=== PATIENT | female | born 1975 | race Caucasian/White ===

== ENCOUNTER 2016-10-27 11:34 | Day surgery (SDC) | payer OTHER ==
[~2016-10-27] VITALS: Ht 162.6 cm; Wt 107.0 kg
[~2016-10-27 11:34] MED LIST: ATIVAN0.5 MG PO; CATAPRES0.1 MG PO; LASIX20 MG PO; MIDOL COMPLETE1 EACH PO; NORVASC10 MG PO; PRISTIQ50 MG PO; ROCALTROL0.25 MCG PO; SYNTHROID88 MCG PO; TYLENOL REGULA325 MG PO; WELLBUTRIN SR200 MG PO
[2016-10-27 12:21] LABS: HEMATOCRIT 40.5 % (36.0-46.0); MCH 30.1 PG (29.0-34.0); MCHC 33.3 G/DL (30.0-36.0); MCV 90.2 FL (83-99); MEAN PLAT.VOLUME 9.8 uM^3 (9.5-12.4); PLATELET COUNT 319 K/uL (156-360); RBC DIS.WIDTH-CV 15.2 % (11.8-14.6); RBC DIS.WIDTH-SD 49.9 % (39-53); RED BLOOD COUNT 4.49 M/uL (3.80-5.20); WHITE BLOOD COUNT 7.6 K/uL (4.1-10.2)
[2016-10-27 12:40] LABS: ANION GAP 12 MEQ/L (2-14); CHLORIDE 103 MEQ/L (99-109); POTASSIUM 3.1 MEQ/L (3.7-5.4); SAMPLE HEMOLYSIS CHECK 0; SAMPLE ICTERIC CHECK 0; SAMPLE LIPEMIA CHECK 0; SODIUM 140 MEQ/L (136-147)
[2016-10-27 12:46] LABS: GFR ESTIMATE (CALCULATED) 12 mL/min/; GLUCOSE 94 mg/dL (70-99); UREA NITROGEN (BUN) 43 mg/dL (9-23)
[2016-10-27 13:12] VITALS: BP 152/99
[2016-10-27] MEDS ORDERED: NORCO 5/3251 TABLET PO (18:26)
[2016-10-27 20:23] VITALS: BP 188/97
[2016-10-27 21:35] VITALS: BP 159/89
== END 2016-10-27 22:05 | disposition home or self-care (01) ==
LOC: SDC 11:34
PROVIDERS: Surgery
PROC: 0WHG43Z Insertion of Infusion Device into Peritoneal Cavity, Percutaneous Endoscopic Approach (ICD-10-PCS; principal; 2016-10-27)
DX: I12.0 Hypertensive chronic kidney disease with stage 5 chronic kidney disease or end stage renal disease (principal); N18.6 End stage renal disease; E03.9 Hypothyroidism, unspecified; K21.9 Gastro-esophageal reflux disease without esophagitis; Z79.899 Other long term (current) drug therapy
CPT/HCPCS: 80048; 85027; C1750; J0330; J1170; J2250; J2405; J2710; J3010; S0020

== ENCOUNTER 2017-01-10 12:57 | Day surgery (SDC) | payer OTHER ==
[~2017-01-10] VITALS: Ht 162.6 cm; Wt 106.0 kg
[~2017-01-10 12:57] MED LIST changes: +COZAAR100 MG PO; +KLOR-CON M2020 MEQ PO; +NORCO 5/3251 TABLET PO; +PRILOSEC OTC20 MG PO; +RENA-VITE RX T1 EACH PO
[2017-01-10 13:59] LABS: ANION GAP 10 MEQ/L (2-14); CHLORIDE 104 MEQ/L (99-109); POTASSIUM 3.9 MEQ/L (3.7-5.4); SAMPLE HEMOLYSIS CHECK 0; SAMPLE ICTERIC CHECK 0; SAMPLE LIPEMIA CHECK 0; SODIUM 141 MEQ/L (136-147)
[2017-01-10 14:03] VITALS: BP 112/67
[2017-01-10 14:04] LABS: GFR ESTIMATE (CALCULATED) 13 mL/min/; GLUCOSE 91 mg/dL (70-99); UREA NITROGEN (BUN) 43 mg/dL (9-23)
[2017-01-10 15:34] LABS: HEMATOCRIT 41.4 % (36.0-46.0); MCH 29.3 PG (29.0-34.0); MCHC 31.9 G/DL (30.0-36.0); PLATELET COUNT 355 K/uL (156-360); RBC DIS.WIDTH-CV 14.5 % (11.8-14.6); RBC DIS.WIDTH-SD 48.9 % (39-53); WHITE BLOOD COUNT 6.3 K/uL (4.1-10.2)
[2017-01-10] MEDS ORDERED: NORCO 5/3251 TABLET PO (18:56)
[2017-01-10 19:43] VITALS: BP 136/84
[2017-01-10 20:47] VITALS: BP 134/73
== END 2017-01-10 20:50 | disposition home or self-care (01) ==
LOC: SDC 12:57
PROVIDERS: Surgery
PROC: 0WWG43Z Revision of Infusion Device in Peritoneal Cavity, Percutaneous Endoscopic Approach (ICD-10-PCS; principal; 2017-01-10)
DX: T85.621A Displacement of intraperitoneal dialysis catheter, initial encounter (principal); T85.848A Pain due to other internal prosthetic devices, implants and grafts, initial encounter; Y83.1 Surgical operation with implant of artificial internal device as the cause of abnormal reaction of the patient, or of later complication, without mention of misadventure at the time of the procedure; I12.0 Hypertensive chronic kidney disease with stage 5 chronic kidney disease or end stage renal disease; N04.9 Nephrotic syndrome with unspecified morphologic changes; N18.6 End stage renal disease; Z99.2 Dependence on renal dialysis; E03.9 Hypothyroidism, unspecified; I25.10 Atherosclerotic heart disease of native coronary artery without angina pectoris; Z82.49 Family history of ischemic heart disease and other diseases of the circulatory system; Z83.3 Family history of diabetes mellitus
CPT/HCPCS: 80048; 85027; 93005; J0131; J0690; J1170; J2250; S0020

== ENCOUNTER 2017-05-03 19:38 | Observation (INO) | payer OTHER ==
[~2017-05-03] VITALS: Ht 162.6 cm; Wt 110.1 kg
[2017-05-03] MEDS ORDERED: FUROSEMIDE80 MG PO (19:59)
[2017-05-03] MEDS ORDERED: LORAZEPAM0.5 MG PO (20:00)
[2017-05-03] MEDS ORDERED: LOPRESSOR25 MG PO (20:00)
[2017-05-03] MEDS ORDERED: PRISTIQ50 MG PO (20:01)
[2017-05-03] MEDS ORDERED: RENA-VITE RX T1 EACH PO (20:02)
[2017-05-03] MEDS ORDERED: RENVELA800 MG PO (20:03)
[2017-05-03] MEDS ORDERED: SYNTHROID88 MCG PO (20:03)
[2017-05-03 21:36] LABS: EOSINOPHIL (%) 5.4 % (0-5); EOSINOPHIL COUNT 0.6 K/uL (0-0.3); HEMATOCRIT 47.5 % (36.0-46.0); IMMATURE GRANULOCYTE (%) 0.6 % (0.0-0.7); IMMATURE GRANULOCYTE COUNT 0.1 K/uL; LYMPHOCYTE COUNT 1.6 K/uL (1.0-2.8); MCH 30.4 PG (29.0-34.0); MCHC 34.1 G/DL (30.0-36.0); MCV 89.1 FL (83-99); MEAN PLAT.VOLUME 8.9 uM^3 (9.5-12.4); MONOCYTE (%) 4.6 % (3-12); MONOCYTE COUNT 0.5 K/uL (0-0.8); NEUTROPHIL (%) 75.9 % (45-76); PLATELET COUNT 288 K/uL (156-360); RBC DIS.WIDTH-CV 13.8 % (11.8-14.6); RBC DIS.WIDTH-SD 43.8 % (39-53); RED BLOOD COUNT 5.33 M/uL (3.80-5.20); WHITE BLOOD COUNT 11.8 K/uL (4.1-10.2)
[2017-05-03 21:47] LABS: CHLORIDE 95 mEq/L (99-109); SODIUM 135 mEq/L (136-147)
[2017-05-03 21:49] LABS: GLUCOSE 93 mg/dL (70-99)
[2017-05-03 21:50] LABS: ANION GAP 20 MEQ/L (2-14)
[2017-05-03 21:51] LABS: TOTAL BILIRUBIN 0.5 mg/dL (0.0-1.0)
[2017-05-03 21:52] LABS: ALKALINE PHOSPHATASE 88 IU/L (3-129)
[2017-05-03 21:53] LABS: GFR ESTIMATE (CALCULATED) 3 mL/min/
[2017-05-03 21:54] LABS: UREA NITROGEN (BUN) 83 mg/dL (9-23)
[2017-05-03 21:56] LABS: LIPASE 74 U/L (1.0-51.0)
[2017-05-03 22:02] LABS: QUANTITATIVE HCG < 4.0 MIU/ML
[2017-05-03 22:22] LABS: TYPE OF FLUID THORACENTESIS
[2017-05-03 22:47] LABS: BODY FLUID RBC'S 2 /MM^3 (0-100); RED CELL AREA COUNTED 18; RED CELL DILUTION 1; WHITE CELL RAW COUNT 4
[2017-05-03 22:48] LABS: BODY FLUID WBC'S 2 /MM^3 (0-500); WBC AREA COUNTED 18; WBC DILUTION 1
[2017-05-03 22:56] LABS: BODY FLUID EOSINOPHILS 17 % (0-25); MONO RAW COUNT 80; MONONUCLEAR WBC'S 80 %; POLY RAW COUNT 3; POLYNUCLEAR WBC'S 3 % (0-25)
[2017-05-03] MEDS ORDERED: SYNTHROID100 MCG PO (23:23)
[2017-05-03] MEDS ORDERED: LOSARTAN POTAS100 MG PO (23:24)
[2017-05-03] MEDS ORDERED: PEPCID20 MG PO (23:24)
[2017-05-03] MEDS ORDERED: GENTAMICIN SULF30 GM TP (23:25)
[2017-05-04 05:07] VITALS: BP 122/64
[2017-05-04 07:52] VITALS: BP 91/50
[2017-05-04 08:23] LABS: HEMATOCRIT 50.3 % (36.0-46.0); MCH 30.3 PG (29.0-34.0); MCHC 32.8 G/DL (30.0-36.0); MCV 92.5 FL (83-99); MEAN PLAT.VOLUME 8.9 uM^3 (9.5-12.4); PLATELET COUNT 309 K/uL (156-360); RBC DIS.WIDTH-CV 14.4 % (11.8-14.6); RBC DIS.WIDTH-SD 47.4 % (39-53); RED BLOOD COUNT 5.44 M/uL (3.80-5.20); WHITE BLOOD COUNT 12.3 K/uL (4.1-10.2)
[2017-05-04 08:47] LABS: ANION GAP 17 MEQ/L (2-14); CHLORIDE 96 MEQ/L (99-109); POTASSIUM 2.9 MEQ/L (3.7-5.4); SAMPLE HEMOLYSIS CHECK 0; SAMPLE ICTERIC CHECK 0; SAMPLE LIPEMIA CHECK 0; SODIUM 138 MEQ/L (136-147)
[2017-05-04 08:53] LABS: GFR ESTIMATE (CALCULATED) 3 mL/min/; GLUCOSE 75 mg/dL (70-99); LIPASE 121 U/L (1.0-51.0); UREA NITROGEN (BUN) 80 mg/dL (9-23)
[2017-05-04 14:30] VITALS: BP 82/52
[2017-05-04 15:45] LABS: MAGNESIUM 2.2 mg/dl (1.3-2.7)
[2017-05-04 19:58] VITALS: BP 92/55
[2017-05-04 23:45] VITALS: BP 100/54
[2017-05-05 03:50] VITALS: BP 110/64
[2017-05-05 04:22] LABS: BASOPHIL COUNT 0.1 K/uL (0-0.1); EOSINOPHIL (%) 17.9 % (0-5); EOSINOPHIL COUNT 1.6 K/uL (0-0.3); HEMATOCRIT 47.4 % (36.0-46.0); IMMATURE GRANULOCYTE (%) 0.5 % (0.0-0.7); INSTRUMENT ABS NEUTROPHIL CT 3.4 K/uL; LYMPHOCYTE COUNT 3.1 K/uL (1.0-2.8); MCH 30.5 PG (29.0-34.0); MCHC 33.1 G/DL (30.0-36.0); MEAN PLAT.VOLUME 8.8 uM^3 (9.5-12.4); MONOCYTE (%) 6.8 % (3-12); MONOCYTE COUNT 0.6 K/uL (0-0.8); NEUTROPHIL (%) 38.4 % (45-76); NEUTROPHIL COUNT 3.4 K/uL (1.8-6.4); PLATELET COUNT 266 K/uL (156-360); RBC DIS.WIDTH-CV 14.4 % (11.8-14.6); RBC DIS.WIDTH-SD 47.2 % (39-53); RED BLOOD COUNT 5.15 M/uL (3.80-5.20); WHITE BLOOD COUNT 8.8 K/uL (4.1-10.2)
[2017-05-05 04:37] LABS: CHLORIDE 104 mEq/L (99-109); SODIUM 137 mEq/L (136-147)
[2017-05-05 04:39] LABS: GLUCOSE 83 mg/dL (70-99)
[2017-05-05 04:40] LABS: POTASSIUM 4.3 mEq/L (3.7-5.4)
[2017-05-05 04:41] LABS: ANION GAP 17 MEQ/L (2-14)
[2017-05-05 04:43] LABS: GFR ESTIMATE (CALCULATED) 3 mL/min/
[2017-05-05 04:44] LABS: UREA NITROGEN (BUN) 77 mg/dL (9-23)
[2017-05-05 06:57] VITALS: BP 93/55
[2017-05-05 11:21] VITALS: BP 118/71
[2017-05-05 15:15] VITALS: BP 108/57
[2017-05-05 20:20] VITALS: BP 113/68
[2017-05-06 00:14] VITALS: BP 96/57
[2017-05-06 04:36] VITALS: BP 105/57
[2017-05-06 05:35] LABS: BASOPHIL COUNT 0.1 K/uL (0-0.1); EOSINOPHIL (%) 17.1 % (0-5); EOSINOPHIL COUNT 1.4 K/uL (0-0.3); HEMATOCRIT 43.4 % (36.0-46.0); IMMATURE GRANULOCYTE (%) 0.4 % (0.0-0.7); INSTRUMENT ABS NEUTROPHIL CT 3.5 K/uL; LYMPHOCYTE COUNT 2.6 K/uL (1.0-2.8); MCH 30.7 PG (29.0-34.0); MCHC 32.9 G/DL (30.0-36.0); MCV 93.1 FL (83-99); MEAN PLAT.VOLUME 8.8 uM^3 (9.5-12.4); MONOCYTE COUNT 0.8 K/uL (0-0.8); NEUTROPHIL (%) 41.5 % (45-76); NEUTROPHIL COUNT 3.5 K/uL (1.8-6.4); PLATELET COUNT 291 K/uL (156-360); RBC DIS.WIDTH-CV 14.5 % (11.8-14.6); RBC DIS.WIDTH-SD 48.3 % (39-53); RED BLOOD COUNT 4.66 M/uL (3.80-5.20); WHITE BLOOD COUNT 8.3 K/uL (4.1-10.2)
[2017-05-06 06:07] LABS: ANION GAP 16 MEQ/L (2-14); CHLORIDE 100 MEQ/L (99-109); GFR ESTIMATE (CALCULATED) 4 mL/min/; GLUCOSE 87 mg/dL (70-99); POTASSIUM 3.6 MEQ/L (3.7-5.4); SAMPLE HEMOLYSIS CHECK 0; SAMPLE ICTERIC CHECK 0; SAMPLE LIPEMIA CHECK 0; SODIUM 139 MEQ/L (136-147); UREA NITROGEN (BUN) 69 mg/dL (9-23)
[2017-05-06 07:03] VITALS: BP 101/67
[2017-05-06] MEDS ORDERED: URSODIOL300 MG PO (09:42)
== END 2017-05-06 10:58 | disposition home or self-care (01) ==
LOC: EME → EDBD 19:38 → EDOF 05-04 02:46 → 4EAST 05-04 02:46 → ENRESERV 05-04 02:47 → 4EAST 05-04 04:53
PROVIDERS: Emergency Medicine; Hospitalist; Internal Medicine Nephrology; Nurse Practitioner Adult Health
DX: K83.8 Other specified diseases of biliary tract (principal); R10.13 Epigastric pain; E87.6 Hypokalemia; I95.9 Hypotension, unspecified; I45.6 Pre-excitation syndrome; Z98.890 Other specified postprocedural states; Q61.3 Polycystic kidney, unspecified; I12.0 Hypertensive chronic kidney disease with stage 5 chronic kidney disease or end stage renal disease; N18.6 End stage renal disease; Z99.2 Dependence on renal dialysis; K21.9 Gastro-esophageal reflux disease without esophagitis; Q22.5 Ebstein's anomaly; R94.31 Abnormal electrocardiogram [ECG] [EKG]; F41.9 Anxiety disorder, unspecified; R18.8 Other ascites
CPT/HCPCS: 76705; 78227; 80048; 80053; 81003; 82150 91; 83605; 83690; 83735; 84702; 85025; 85027; 87070; 87205; 89051; 93005; 93306; 99281; 99285; A9537; G0378; J1644; J2405; J2765; J2805; J7040; S0028

== ENCOUNTER 2017-05-12 11:21 | Emergency (ER) | payer OTHER ==
[~2017-05-12] VITALS: Ht 162.6 cm; Wt 103.2 kg
[~2017-05-12 11:21] MED LIST changes: +FUROSEMIDE80 MG PO; +GENTAMICIN SULF30 GM TP; +LOPRESSOR25 MG PO; +LORAZEPAM0.5 MG PO; +LOSARTAN POTAS100 MG PO; +PEPCID20 MG PO; +RENVELA800 MG PO; +SYNTHROID100 MCG PO; +URSODIOL300 MG PO
[2017-05-12 12:51] LABS: HEMATOCRIT 51.8 % (36.0-46.0); MCH 30.8 PG (29.0-34.0); MCHC 33.4 G/DL (30.0-36.0); MCV 92.2 FL (83-99); PLATELET COUNT 351 K/uL (156-360); RBC DIS.WIDTH-CV 14.4 % (11.8-14.6); RBC DIS.WIDTH-SD 48.5 % (39-53); WHITE BLOOD COUNT 9.3 K/uL (4.1-10.2)
[2017-05-12 12:52] LABS: RED BLOOD COUNT 5.62 M/uL (3.80-5.20)
[2017-05-12 13:00] LABS: CHLORIDE 98 mEq/L (99-109); POTASSIUM 3.6 mEq/L (3.7-5.4); SODIUM 139 mEq/L (136-147)
[2017-05-12 13:03] LABS: GLUCOSE 97 mg/dL (70-99)
[2017-05-12 13:04] LABS: ANION GAP 15 MEQ/L (2-14)
[2017-05-12 13:05] LABS: TOTAL BILIRUBIN 0.5 mg/dL (0.0-1.0)
[2017-05-12 13:06] LABS: ALKALINE PHOSPHATASE 83 IU/L (3-129); GFR ESTIMATE (CALCULATED) 4 mL/min/
[2017-05-12 13:07] LABS: UREA NITROGEN (BUN) 64 mg/dL (9-23)
[2017-05-12 13:16] LABS: QUANTITATIVE HCG < 4.0 MIU/ML
[2017-05-12 13:28] LABS: LIPASE 136 U/L (1.0-51.0)
[2017-05-12] MEDS ORDERED: LORTAB 5-325 M1 EACH PO (14:31)
[2017-05-12 14:52] VITALS: BP 140/88
== END 2017-05-12 14:53 | disposition home or self-care (01) ==
LOC: EME 11:21
DX: R10.13 Epigastric pain (principal); R10.33 Periumbilical pain; R11.2 Nausea with vomiting, unspecified; I12.0 Hypertensive chronic kidney disease with stage 5 chronic kidney disease or end stage renal disease; N18.6 End stage renal disease; Z99.2 Dependence on renal dialysis; Q61.3 Polycystic kidney, unspecified; I45.6 Pre-excitation syndrome; Z87.442 Personal history of urinary calculi
CPT/HCPCS: 74176; 80053; 81003; 83690; 84702; 85027; 99281; 99284; J3010; J7030

== ENCOUNTER 2017-08-24 15:55 | Inpatient (IN) | payer OTHER ==
[~2017-08-24] VITALS: Ht 162.6 cm; Wt 104.1 kg
[~2017-08-24 15:55] MED LIST changes: +LORTAB 5-325 M1 EACH PO
[2017-08-24 17:53] LABS: HEMATOCRIT 45.5 % (36.0-46.0); MCH 33.2 PG (29.0-34.0); MCHC 33.4 G/DL (30.0-36.0); MCV 99.3 FL (83-99); MEAN PLAT.VOLUME 9.1 uM^3 (9.5-12.4); PLATELET COUNT 290 K/uL (156-360); RBC DIS.WIDTH-CV 16.5 % (11.8-14.6); RBC DIS.WIDTH-SD 57.4 % (39-53); RED BLOOD COUNT 4.58 M/uL (3.80-5.20); WHITE BLOOD COUNT 9.9 K/uL (4.1-10.2)
[2017-08-24 18:04] LABS: CHLORIDE 92 mEq/L (99-109); POTASSIUM 5.8 mEq/L (3.7-5.4); SODIUM 132 mEq/L (136-147)
[2017-08-24 18:05] LABS: GLUCOSE 92 mg/dL (70-99)
[2017-08-24 18:07] LABS: ANION GAP 19 MEQ/L (2-14)
[2017-08-24 18:09] LABS: GFR ESTIMATE (CALCULATED) 3 mL/min/
[2017-08-24 18:20] LABS: TROP-I INTERPRETATION NEGATIVE; TROPONIN-I < 0.01 ng/mL (0.0-0.30)
[2017-08-24 18:21] LABS: UREA NITROGEN (BUN) 120 mg/dL (9-23)
[2017-08-24 19:16] LABS: CREATININE 16.3 mg/dL (0.6-1.3); POTASSIUM 5.7 mEq/L (3.7-5.4)
[2017-08-24] MEDS ORDERED: SYNTHROID112 MCG PO (19:21)
[2017-08-24] MEDS ORDERED: RENVELA800 MG PO (19:23)
[2017-08-24] MEDS ORDERED: POTASSIUM CHLO20 ME1 PO (19:26)
[2017-08-24] MEDS ORDERED: ESOMEPRAZOLE MA40 MG PO (19:26)
[2017-08-24] MEDS ORDERED: VITAMIN D31000 UNI2 PO (19:27)
[2017-08-24] MEDS ORDERED: TRAZODONE HCL50 MG PO (19:27)
[2017-08-24] MEDS ORDERED: BENADRYL25 MG PO (19:28)
[2017-08-24 21:11] LABS: QUANTITATIVE HCG < 4.0 MIU/ML
[2017-08-24 21:27] VITALS: BP 96/61
[2017-08-24 23:20] VITALS: BP 96/61
[2017-08-25] VITALS (7 sets, daily range): BP systolic 92–123; BP diastolic 57–82
[2017-08-25 01:12] LABS: POTASSIUM 5.3 mEq/L (3.7-5.4)
[2017-08-25 01:26] LABS: TROP-I INTERPRETATION NEGATIVE; TROPONIN-I < 0.01 ng/mL (0.0-0.30)
[2017-08-25 05:51] LABS: BASOPHIL COUNT 0.1 K/uL (0-0.1); EOSINOPHIL (%) 6.2 % (0-5); EOSINOPHIL COUNT 0.6 K/uL (0-0.3); HEMATOCRIT 39.8 % (36.0-46.0); IMMATURE GRANULOCYTE (%) 1.5 % (0.0-0.7); IMMATURE GRANULOCYTE COUNT 0.2 K/uL; INSTRUMENT ABS NEUTROPHIL CT 4.9 K/uL; LYMPHOCYTE COUNT 3.2 K/uL (1.0-2.8); MCH 32.5 PG (29.0-34.0); MCHC 32.4 G/DL (30.0-36.0); MCV 100.3 FL (83-99); MEAN PLAT.VOLUME 9.1 uM^3 (9.5-12.4); MONOCYTE (%) 10.6 % (3-12); MONOCYTE COUNT 1.1 K/uL (0-0.8); NEUTROPHIL (%) 48.5 % (45-76); NEUTROPHIL COUNT 4.9 K/uL (1.8-6.4); PLATELET COUNT 260 K/uL (156-360); RBC DIS.WIDTH-CV 16.3 % (11.8-14.6); RBC DIS.WIDTH-SD 59.5 % (39-53); RED BLOOD COUNT 3.97 M/uL (3.80-5.20)
[2017-08-25 06:04] LABS: TROP-I INTERPRETATION NEGATIVE; TROPONIN-I 0.01 ng/mL (0.0-0.30)
[2017-08-25 06:28] LABS: ALKALINE PHOSPHATASE 67 IU/L (3-129); CHLORIDE 97 MEQ/L (99-109); GFR ESTIMATE (CALCULATED) 3 mL/min/; GLUCOSE 110 mg/dL (70-99); POTASSIUM 4.9 MEQ/L (3.7-5.4); SAMPLE HEMOLYSIS CHECK 0; SAMPLE ICTERIC CHECK 0; SODIUM 136 MEQ/L (136-147); TOTAL BILIRUBIN 0.3 MG/DL (0.0-1.0)
[2017-08-25 06:29] LABS: ANION GAP 18 MEQ/L (2-14); SAMPLE LIPEMIA CHECK 0
[2017-08-25 06:38] LABS: UREA NITROGEN (BUN) 123 mg/dL (9-23)
[2017-08-26 03:46] VITALS: BP 104/64
[2017-08-26 05:50] LABS: BASOPHIL COUNT 0.1 K/uL (0-0.1); EOSINOPHIL (%) 7.5 % (0-5); EOSINOPHIL COUNT 0.6 K/uL (0-0.3); HEMATOCRIT 37.2 % (36.0-46.0); IMMATURE GRANULOCYTE (%) 1.6 % (0.0-0.7); IMMATURE GRANULOCYTE COUNT 0.1 K/uL; INSTRUMENT ABS NEUTROPHIL CT 3.8 K/uL; LYMPHOCYTE COUNT 2.1 K/uL (1.0-2.8); MCH 32.8 PG (29.0-34.0); MCHC 32.8 G/DL (30.0-36.0); MEAN PLAT.VOLUME 9.1 uM^3 (9.5-12.4); MONOCYTE (%) 10.6 % (3-12); MONOCYTE COUNT 0.8 K/uL (0-0.8); NEUTROPHIL (%) 51.5 % (45-76); NEUTROPHIL COUNT 3.8 K/uL (1.8-6.4); PLATELET COUNT 260 K/uL (156-360); RBC DIS.WIDTH-CV 16.1 % (11.8-14.6); RED BLOOD COUNT 3.72 M/uL (3.80-5.20); WHITE BLOOD COUNT 7.4 K/uL (4.1-10.2)
[2017-08-26 06:18] LABS: ANION GAP 15 MEQ/L (2-14); CHLORIDE 100 MEQ/L (99-109); GFR ESTIMATE (CALCULATED) 3 mL/min/; GLUCOSE 98 mg/dL (70-99); MAGNESIUM 1.9 mg/dl (1.3-2.7); POTASSIUM 4.7 MEQ/L (3.7-5.4); SAMPLE HEMOLYSIS CHECK 0; SAMPLE ICTERIC CHECK 0; SAMPLE LIPEMIA CHECK 0; SODIUM 137 MEQ/L (136-147)
[2017-08-26 06:19] LABS: UREA NITROGEN (BUN) 118 mg/dL (9-23)
[2017-08-26 06:57] VITALS: BP 122/82
[2017-08-26 13:15] VITALS: BP 113/76
[2017-08-26] MEDS ORDERED: PREDNISONE5 MG PO (13:38)
== END 2017-08-26 14:15 | disposition home or self-care (01) | DRG 312 ==
LOC: EME 15:55 → EDOF 20:12 → 5EAST 20:12 → ENRESERV 20:13 → 5EAST 21:27
PROVIDERS: Emergency Medicine; Hospitalist; Internal Medicine Nephrology
PROC: 3E1M39Z Irrigation of Peritoneal Cavity using Dialysate, Percutaneous Approach (ICD-10-PCS; principal; 2017-08-25)
DX: I95.1 Orthostatic hypotension (principal); I12.0 Hypertensive chronic kidney disease with stage 5 chronic kidney disease or end stage renal disease; Z99.2 Dependence on renal dialysis; E86.0 Dehydration; N18.6 End stage renal disease; Q61.3 Polycystic kidney, unspecified; E03.9 Hypothyroidism, unspecified; I45.6 Pre-excitation syndrome; E27.40 Unspecified adrenocortical insufficiency; K21.9 Gastro-esophageal reflux disease without esophagitis; F32.9 Major depressive disorder, single episode, unspecified
CPT/HCPCS: 70551; 71020; 78582; 80047; 80048; 80076; 81003; 82533 91; 83605; 83735; 84100; 84132 91; 84443; 84484; 84702; 85025; 85027; 87040; 87086; 89051; 93005; 93306; 99281; 99285; A9540; A9567; J1644; J7030

== ENCOUNTER 2017-09-24 19:12 | Emergency (ER) | payer OTHER ==
[~2017-09-24] VITALS: Ht 167.6 cm; Wt 100.0 kg
[~2017-09-24 19:12] MED LIST changes: +BENADRYL25 MG PO; +ESOMEPRAZOLE MA40 MG PO; +POTASSIUM CHLO20 ME1 PO; +PREDNISONE5 MG PO; +SYNTHROID112 MCG PO; +TRAZODONE HCL50 MG PO; +VITAMIN D31000 UNI2 PO
[2017-09-24 19:33] LABS: CREATININE 15.6 mg/dL (0.6-1.3); POTASSIUM 5.4 mEq/L (3.7-5.4)
[2017-09-24 19:41] LABS: HEMATOCRIT 44.2 % (36.0-46.0); MCH 33.6 PG (29.0-34.0); MCV 101.6 FL (83-99); MEAN PLAT.VOLUME 8.7 uM^3 (9.5-12.4); PLATELET COUNT 246 K/uL (156-360); RBC DIS.WIDTH-CV 14.4 % (11.8-14.6); RBC DIS.WIDTH-SD 54.5 % (39-53); RED BLOOD COUNT 4.35 M/uL (3.80-5.20); WHITE BLOOD COUNT 7.8 K/uL (4.1-10.2)
[2017-09-24 19:55] LABS: CHLORIDE 96 mEq/L (99-109); POTASSIUM 5.6 mEq/L (3.7-5.4); SODIUM 137 mEq/L (136-147)
[2017-09-24 19:57] LABS: GLUCOSE 95 mg/dL (70-99)
[2017-09-24 19:59] LABS: ANION GAP 19 MEQ/L (2-14)
[2017-09-24 20:01] LABS: GFR ESTIMATE (CALCULATED) 3 mL/min/; PROTHROMBIN TIME 11.2 SEC (10.2-12.9)
[2017-09-24 20:02] LABS: UREA NITROGEN (BUN) 91 mg/dL (9-23)
[2017-09-24 20:04] LABS: PTT 29.4 SEC (25-37)
[2017-09-24 20:09] LABS: QUANTITATIVE HCG < 4.0 MIU/ML
[2017-09-24 22:01] VITALS: BP 120/74
== END 2017-09-24 22:06 | disposition short-term general hospital (02) ==
LOC: EME 19:12 → EDBD 19:12 → EME 22:06
PROVIDERS: Emergency Medicine
DX: I63.9 Cerebral infarction, unspecified (principal); R47.01 Aphasia; R29.810 Facial weakness; G81.91 Hemiplegia, unspecified affecting right dominant side; Q61.3 Polycystic kidney, unspecified; Z99.2 Dependence on renal dialysis; Z72.0 Tobacco use
CPT/HCPCS: 70450; 71010; 80047; 80048; 83605; 84702; 85027; 85610; 85730; 86850; 86900; 86901; 93005; 99281; 99285; J2997; J7050

== ENCOUNTER 2017-10-04 15:05 | Inpatient (IN) | payer OTHER ==
[~2017-10-04] VITALS: Ht 162.6 cm; Wt 104.9 kg
[~2017-10-04 15:05] MED LIST changes: -SYNTHROID112 MCG PO; +SYNTHROID125 MCG PO
[2017-10-04 15:45] LABS: BASOPHIL (%) 0.7 % (0-1); BASOPHIL COUNT 0.1 K/uL (0-0.1); EOSINOPHIL (%) 5.4 % (0-5); EOSINOPHIL COUNT 0.5 K/uL (0-0.3); HEMATOCRIT 40.8 % (36.0-46.0); HEMOGLOBIN 13.4 G/DL (11.9-15.5); IMMATURE GRANULOCYTE (%) 1.7 % (0.0-0.7); LYMPHOCYTE (%) 17.1 % (15-42); LYMPHOCYTE COUNT 1.6 K/uL (1.0-2.8); MCH 33.3 PG (29.0-34.0); MCHC 32.8 G/DL (30.0-36.0); MCV 101.5 FL (83-99); MONOCYTE (%) 12.4 % (3-12); MONOCYTE COUNT 1.1 K/uL (0-0.8); NEUTROPHIL (%) 62.7 % (45-76); NEUTROPHIL COUNT 5.7 K/uL (1.8-6.4); RBC DIS.WIDTH-CV 14.1 % (11.8-14.6); RBC DIS.WIDTH-SD 52.7 % (39-53); RED BLOOD COUNT 4.02 M/uL (3.80-5.20); WHITE BLOOD COUNT 9.1 K/uL (4.1-10.2)
[2017-10-04 15:47] LABS: PLATELET COUNT 379 K/uL (156-360)
[2017-10-04 15:53] LABS: PTT 32.1 SEC (25-37)
[2017-10-04 15:54] LABS: AMYLASE 209 IU/L (1-118); CHLORIDE 96 mEq/L (99-109); POTASSIUM 4.4 mEq/L (3.7-5.4); SODIUM 137 mEq/L (136-147)
[2017-10-04 15:56] LABS: GLUCOSE 99 mg/dL (70-99)
[2017-10-04 15:59] LABS: SERUM ETHYL ALCOHOL < 10 mg/dL
[2017-10-04 16:00] LABS: GFR ESTIMATE (CALCULATED) 2 mL/min/; UREA NITROGEN (BUN) 58 mg/dL (9-23)
[2017-10-04 16:03] LABS: LIPASE 201 U/L (1.0-51.0)
[2017-10-04 16:05] LABS: TROP-I INTERPRETATION NEGATIVE; TROPONIN-I 0.03 ng/mL (0.0-0.30)
[2017-10-04 16:08] LABS: QUANTITATIVE HCG < 4.0 MIU/ML
[2017-10-04 18:30] LABS: HEMATOCRIT 43.8 % (36.0-46.0); MCH 32.6 PG (29.0-34.0); MCV 102.1 FL (83-99); PLATELET COUNT 369 K/uL (156-360); RBC DIS.WIDTH-CV 14.1 % (11.8-14.6); RBC DIS.WIDTH-SD 52.9 % (39-53); RED BLOOD COUNT 4.29 M/uL (3.80-5.20)
[2017-10-04] MEDS ORDERED: ATORVASTATIN CA40 MG PO (20:17)
[2017-10-04 20:32] VITALS: BP 124/76
[2017-10-04 21:38] VITALS: BP 120/74
[2017-10-04 23:40] VITALS: BP 114/68
[2017-10-05 06:20] LABS: HDL CHOLESTEROL 60 MG/DL (Desirable>=50); LDL CHOLESTEROL 39 mg/dL (Desirable<100); LIPASE 226 U/L (1.0-51.0); NON-HDL CHOLESTEROL 59 mg/dL (Desirable<160); TOTAL CHOLESTEROL 119 mg/dL (Desirable<200); TRIGLYCERIDES 99 MG/DL (Normal: <150)
[2017-10-05 06:53] LABS: Estimated Average Glucose 100 mg/dL (70-123); HEMOGLOBIN A1c (GLYCOHEMOGLOB) 5.1 % HGB (Below 5.7)
[2017-10-05 08:54] VITALS: BP 119/60
[2017-10-05 09:19] LABS: TROP-I INTERPRETATION NEGATIVE; TROPONIN-I 0.03 ng/mL (0.0-0.30)
[2017-10-05 12:11] VITALS: BP 117/66
[2017-10-05 15:03] VITALS: BP 126/73
[2017-10-05 15:07] LABS: TROP-I INTERPRETATION NEGATIVE; TROPONIN-I 0.02 ng/mL (0.0-0.30)
[2017-10-05 16:07] LABS: TYPE OF FLUID PERITONEAL
[2017-10-05 19:00] VITALS: BP 124/69
[2017-10-05 20:16] LABS: APPEARANCE CLEAR-COLORLESS; BODY FLUID RBC'S < 1000 /MM^3 (0-100); BODY FLUID WBC'S 9 /MM^3 (0-500)
[2017-10-05 20:30] LABS: COMMENT NO CELLS FOR DIFF
[2017-10-05 20:57] LABS: TROP-I INTERPRETATION NEGATIVE; TROPONIN-I 0.02 ng/mL (0.0-0.30)
[2017-10-05 23:00] VITALS: BP 119/86; BP 153/70
[2017-10-06 04:20] VITALS: BP 119/87
[2017-10-06 06:00] LABS: BASOPHIL (%) 0.8 % (0-1); BASOPHIL COUNT 0.1 K/uL (0-0.1); EOSINOPHIL (%) 8.4 % (0-5); EOSINOPHIL COUNT 0.7 K/uL (0-0.3); HEMOGLOBIN 12.7 G/DL (11.9-15.5); LYMPHOCYTE (%) 21.9 % (15-42); LYMPHOCYTE COUNT 1.9 K/uL (1.0-2.8); MCH 32.9 PG (29.0-34.0); MCHC 31.8 G/DL (30.0-36.0); MCV 103.6 FL (83-99); MONOCYTE COUNT 1.2 K/uL (0-0.8); NEUTROPHIL (%) 54.9 % (45-76); NEUTROPHIL COUNT 4.8 K/uL (1.8-6.4); PLATELET COUNT 340 K/uL (156-360); RBC DIS.WIDTH-CV 13.7 % (11.8-14.6); RBC DIS.WIDTH-SD 52.5 % (39-53); RED BLOOD COUNT 3.86 M/uL (3.80-5.20); WHITE BLOOD COUNT 8.8 K/uL (4.1-10.2)
[2017-10-06 06:31] LABS: ALBUMIN 3.6 G/DL (3.2-4.8); ALKALINE PHOSPHATASE 54 IU/L (3-129); ALT (GPT) 36 IU/L (3-49); AST (GOT) 29 IU/L (2-34); CHLORIDE 95 MEQ/L (99-109); CREATININE 16.3 MG/DL (0.6-1.3); GFR ESTIMATE (CALCULATED) 3 mL/min/; GLUCOSE 77 mg/dL (70-99); POTASSIUM 4.5 MEQ/L (3.7-5.4); SODIUM 135 MEQ/L (136-147); TOTAL BILIRUBIN 0.3 MG/DL (0.0-1.0); TOTAL PROTEIN 6.6 G/DL (6.4-8.3); UREA NITROGEN (BUN) 71 mg/dL (9-23)
[2017-10-06 09:13] VITALS: BP 102/70
[2017-10-06 12:39] VITALS: BP 128/89
[2017-10-06 17:22] VITALS: BP 117/80
[2017-10-06 19:30] VITALS: BP 107/75
[2017-10-06 23:00] VITALS: BP 124/84
[2017-10-07 03:30] VITALS: BP 123/80
[2017-10-07 07:58] VITALS: BP 121/84
[2017-10-07 12:00] VITALS: BP 118/64
[2017-10-07 15:00] VITALS: BP 127/80
[2017-10-07 19:30] VITALS: BP 118/78
[2017-10-07 23:35] VITALS: BP 106/67
[2017-10-08 04:05] VITALS: BP 106/66
[2017-10-08 07:35] VITALS: BP 105/72
[2017-10-08 11:50] VITALS: BP 107/68
[2017-10-08] MEDS ORDERED: ASPIR-LOW81 MG PO (13:13)
== END 2017-10-08 15:59 | disposition home or self-care (01) | DRG 64 ==
LOC: EME 15:05 → 4EAST 17:45 → EDOF 17:45 → ENRESERV 17:49 → 4EAST 20:24
PROVIDERS: Emergency Medicine; Hospitalist; Internal Medicine Nephrology
PROC: 0JWT33Z Revision of Infusion Device in Trunk Subcutaneous Tissue and Fascia, Percutaneous Approach (ICD-10-PCS; principal; 2017-10-04)
DX: I63.9 Cerebral infarction, unspecified (principal); T85.611A Breakdown (mechanical) of intraperitoneal dialysis catheter, initial encounter; Y81.2 Prosthetic and other implants, materials and accessory general- and plastic-surgery devices associated with adverse incidents; N18.6 End stage renal disease; I12.0 Hypertensive chronic kidney disease with stage 5 chronic kidney disease or end stage renal disease; E66.9 Obesity, unspecified; F32.9 Major depressive disorder, single episode, unspecified; I25.10 Atherosclerotic heart disease of native coronary artery without angina pectoris; I45.6 Pre-excitation syndrome; E78.5 Hyperlipidemia, unspecified; D75.89 Other specified diseases of blood and blood-forming organs; K85.90 Acute pancreatitis without necrosis or infection, unspecified; Q22.5 Ebstein's anomaly; I69.351 Hemiplegia and hemiparesis following cerebral infarction affecting right dominant side; Z99.2 Dependence on renal dialysis; K21.9 Gastro-esophageal reflux disease without esophagitis; E03.9 Hypothyroidism, unspecified; E55.9 Vitamin D deficiency, unspecified; Z88.8 Allergy status to other drugs, medicaments and biological substances; Q61.3 Polycystic kidney, unspecified; Z68.37 Body mass index [BMI] 37.0-37.9, adult; Q21.0 Ventricular septal defect; I69.320 Aphasia following cerebral infarction; F17.200 Nicotine dependence, unspecified, uncomplicated; Z87.442 Personal history of urinary calculi; R47.81 Slurred speech
CPT/HCPCS: 70450; 70496; 70498; 70551; 74000; 80048; 80053; 80061; 81003; 82150; 82948; 83036; 83690; 84484; 84702; 85025; 85027; 85610; 85730; 86850; 86900; 86901; 87081; 87641; 89051; 92507 GN; 92523 GN; 93005; 93312; 99281; 99285; G0480; J1100; J1170; J2250; J2405; J2710; J3010; S0020; S0074

== ENCOUNTER 2017-12-01 13:01 | Inpatient (IN) | payer OTHER ==
[~2017-12-01] VITALS: Ht 170.2 cm; Wt 105.2 kg
[~2017-12-01 13:01] MED LIST changes: +ASPIR-LOW81 MG PO; +ATORVASTATIN CA40 MG PO
[2017-12-01 13:40] LABS: HEMATOCRIT 45.4 % (36.0-46.0); HEMOGLOBIN 14.7 G/DL (11.9-15.5); MCH 31.5 PG (29.0-34.0); MCHC 32.4 G/DL (30.0-36.0); MCV 97.4 FL (83-99); NRBC (%) 0.2 /100 WBC (0-0); PLATELET COUNT 214 K/uL (156-360); RBC DIS.WIDTH-CV 14.6 % (11.8-14.6); RBC DIS.WIDTH-SD 51.1 % (39-53); RED BLOOD COUNT 4.66 M/uL (3.80-5.20); WHITE BLOOD COUNT 11.6 K/uL (4.1-10.2)
[2017-12-01 13:45] LABS: INTER. NORMALIZED RATIO 1.1
[2017-12-01 13:48] LABS: PTT 29.4 SEC (25-37)
[2017-12-01 13:50] LABS: ALBUMIN 4.4 g/dL (3.2-4.8)
[2017-12-01 13:51] LABS: CHLORIDE 93 mEq/L (99-109); SODIUM 138 mEq/L (136-147)
[2017-12-01 13:53] LABS: GLUCOSE 105 mg/dL (70-99)
[2017-12-01 13:55] LABS: TOTAL BILIRUBIN 0.7 mg/dL (0.0-1.0)
[2017-12-01 13:56] LABS: ALKALINE PHOSPHATASE 88 IU/L (3-129)
[2017-12-01 13:57] LABS: CREATININE 16.6 mg/dL (0.6-1.3); GFR ESTIMATE (CALCULATED) 3 mL/min/
[2017-12-01 13:58] LABS: AST (GOT) 20 IU/L (2-34); UREA NITROGEN (BUN) 76 mg/dL (9-23)
[2017-12-01 13:59] LABS: ALT (GPT) 19 IU/L (3-49)
[2017-12-01 14:08] LABS: TROP-I INTERPRETATION POSITIVE
[2017-12-01 14:12] LABS: POTASSIUM 6.2 mEq/L (3.7-5.4)
[2017-12-01 14:13] LABS: TROPONIN-I 2.16 ng/mL (0.0-0.30)
[2017-12-01] MEDS ORDERED: URSODIOL300 MG PO (16:29)
[2017-12-01 17:43] LABS: CHLORIDE 91 mEq/L (99-109); SODIUM 135 mEq/L (136-147)
[2017-12-01 17:45] LABS: GLUCOSE 87 mg/dL (70-99)
[2017-12-01 17:49] LABS: CREATININE 16.6 mg/dL (0.6-1.3); GFR ESTIMATE (CALCULATED) 3 mL/min/
[2017-12-01 17:50] LABS: UREA NITROGEN (BUN) 78 mg/dL (9-23)
[2017-12-01 17:54] LABS: TROP-I INTERPRETATION POSITIVE; TROPONIN-I 2.03 ng/mL (0.0-0.30)
[2017-12-01 18:30] VITALS: BP 138/86
[2017-12-01 20:34] LABS: TROP-I INTERPRETATION POSITIVE; TROPONIN-I 2.14 ng/mL (0.0-0.30)
[2017-12-01 20:42] LABS: HDL CHOLESTEROL 62 MG/DL (Desirable>=50); LDL CHOLESTEROL 143 mg/dL (Desirable<100); NON-HDL CHOLESTEROL 168 mg/dL (Desirable<160); TOTAL CHOLESTEROL 230 mg/dL (Desirable<200); TRIGLYCERIDES 125 MG/DL (Normal: <150)
[2017-12-01 21:55] LABS: CHLORIDE 92 mEq/L (99-109); SODIUM 136 mEq/L (136-147)
[2017-12-01 21:57] LABS: GLUCOSE 97 mg/dL (70-99)
[2017-12-01 22:01] LABS: CREATININE 16.3 mg/dL (0.6-1.3); GFR ESTIMATE (CALCULATED) 3 mL/min/
[2017-12-01 22:02] LABS: POTASSIUM 4.7 mEq/L (3.7-5.4); UREA NITROGEN (BUN) 76 mg/dL (9-23)
[2017-12-02 01:10] LABS: TROP-I INTERPRETATION POSITIVE
[2017-12-02 01:12] LABS: TROPONIN-I 2.08 ng/mL (0.0-0.30)
[2017-12-02 03:50] VITALS: BP 133/76
[2017-12-02 07:10] LABS: BASOPHIL (%) 0.5 % (0-1); BASOPHIL COUNT 0.1 K/uL (0-0.1); EOSINOPHIL (%) 4.7 % (0-5); EOSINOPHIL COUNT 0.4 K/uL (0-0.3); HEMATOCRIT 40.3 % (36.0-46.0); HEMOGLOBIN 12.9 G/DL (11.9-15.5); IMMATURE GRANULOCYTE (%) 0.9 % (0.0-0.7); LYMPHOCYTE (%) 16.8 % (15-42); LYMPHOCYTE COUNT 1.6 K/uL (1.0-2.8); MCH 30.8 PG (29.0-34.0); MCV 96.2 FL (83-99); MONOCYTE (%) 8.9 % (3-12); MONOCYTE COUNT 0.8 K/uL (0-0.8); NEUTROPHIL (%) 68.2 % (45-76); NEUTROPHIL COUNT 6.3 K/uL (1.8-6.4); PLATELET COUNT 202 K/uL (156-360); RBC DIS.WIDTH-CV 14.4 % (11.8-14.6); RBC DIS.WIDTH-SD 49.8 % (39-53); RED BLOOD COUNT 4.19 M/uL (3.80-5.20); WHITE BLOOD COUNT 9.3 K/uL (4.1-10.2)
[2017-12-02 07:36] LABS: CHLORIDE 90 MEQ/L (99-109); CREATININE 16.3 MG/DL (0.6-1.3); GFR ESTIMATE (CALCULATED) 3 mL/min/; GLUCOSE 108 mg/dL (70-99); POTASSIUM 4.1 MEQ/L (3.7-5.4); SODIUM 136 MEQ/L (136-147); UREA NITROGEN (BUN) 71 mg/dL (9-23)
[2017-12-02 08:20] VITALS: BP 133/94
[2017-12-02 08:22] LABS: TROP-I INTERPRETATION POSITIVE
[2017-12-02 08:33] LABS: TROPONIN-I 2.35 ng/mL (0.0-0.30)
[2017-12-02 09:00] VITALS: BP 141/84
[2017-12-02 11:24] VITALS: BP 132/92
[2017-12-02 11:50] LABS: HEMOGLOBIN A1c (GLYCOHEMOGLOB) 4.8 % (Below 5.7)
[2017-12-02 13:00] VITALS: BP 132/92
== END 2017-12-02 15:54 | disposition short-term general hospital (02) | DRG 64 ==
LOC: EME 13:01 → EDOF 16:05 → 4EAST 16:05 → ENRESERV 16:15 → 4EAST 18:31 → ENPENDDIS 12-02 → 4EAST 12-02 15:54
PROVIDERS: Emergency Medicine; Hospitalist; Internal Medicine Nephrology
DX: I63.442 Cerebral infarction due to embolism of left cerebellar artery (principal); I21.4 Non-ST elevation (NSTEMI) myocardial infarction; Q22.5 Ebstein's anomaly; N18.6 End stage renal disease; I12.0 Hypertensive chronic kidney disease with stage 5 chronic kidney disease or end stage renal disease; Q21.1 Atrial septal defect; Q61.3 Polycystic kidney, unspecified; F05 Delirium due to known physiological condition; E03.9 Hypothyroidism, unspecified; E78.5 Hyperlipidemia, unspecified; E83.52 Hypercalcemia; E87.5 Hyperkalemia; F41.9 Anxiety disorder, unspecified; G93.89 Other specified disorders of brain; E66.01 Morbid (severe) obesity due to excess calories; I45.6 Pre-excitation syndrome; K21.9 Gastro-esophageal reflux disease without esophagitis; Z99.2 Dependence on renal dialysis; Z87.442 Personal history of urinary calculi; I69.320 Aphasia following cerebral infarction; Z68.36 Body mass index [BMI] 36.0-36.9, adult
CPT/HCPCS: 70450; 70496; 70498; 70551; 71046; 80048; 80048 91; 80053; 80061; 81003; 82948; 83036; 84484; 85025; 85027; 85610; 85730; 92523 GN; 93005; 94760; 99202; 99281; 99285; J0610; J7050

== ENCOUNTER 2017-12-28 11:12 | Inpatient (IN) | payer OTHER ==
[~2017-12-28] VITALS: Ht 162.6 cm; Wt 102.7 kg
[2017-12-28 11:32] LABS: BASOPHIL (%) 0.5 % (0-1); BASOPHIL COUNT 0.1 K/uL (0-0.1); EOSINOPHIL (%) 7.3 % (0-5); EOSINOPHIL COUNT 0.7 K/uL (0-0.3); HEMATOCRIT 41.6 % (36.0-46.0); HEMOGLOBIN 13.6 G/DL (11.9-15.5); IMMATURE GRANULOCYTE (%) 0.5 % (0.0-0.7); LYMPHOCYTE (%) 26.6 % (15-42); LYMPHOCYTE COUNT 2.6 K/uL (1.0-2.8); MCH 31.7 PG (29.0-34.0); MCHC 32.7 G/DL (30.0-36.0); MONOCYTE (%) 7.8 % (3-12); MONOCYTE COUNT 0.8 K/uL (0-0.8); NEUTROPHIL (%) 57.3 % (45-76); NEUTROPHIL COUNT 5.6 K/uL (1.8-6.4); PLATELET COUNT 195 K/uL (156-360); RBC DIS.WIDTH-CV 14.5 % (11.8-14.6); RBC DIS.WIDTH-SD 52.1 % (39-53); RED BLOOD COUNT 4.29 M/uL (3.80-5.20); WHITE BLOOD COUNT 9.8 K/uL (4.1-10.2)
[2017-12-28 11:38] LABS: INTER. NORMALIZED RATIO 1.1
[2017-12-28 11:40] LABS: AMYLASE 90 IU/L (1-118); CHLORIDE 94 mEq/L (99-109); POTASSIUM 3.5 mEq/L (3.7-5.4); PTT 28.6 SEC (25-37); SODIUM 143 mEq/L (136-147)
[2017-12-28 11:42] LABS: GLUCOSE 97 mg/dL (70-99)
[2017-12-28 11:45] LABS: SERUM ETHYL ALCOHOL < 10 mg/dL
[2017-12-28 11:46] LABS: CREATININE 17.5 mg/dL (0.6-1.3); GFR ESTIMATE (CALCULATED) 2 mL/min/
[2017-12-28 11:47] LABS: UREA NITROGEN (BUN) 73 mg/dL (9-23)
[2017-12-28 11:49] LABS: LIPASE 50 U/L (1.0-51.0)
[2017-12-28 11:52] LABS: TROP-I INTERPRETATION POSITIVE
[2017-12-28 11:54] LABS: TROPONIN-I 0.75 ng/mL (0.0-0.30)
[2017-12-28 11:55] LABS: QUANTITATIVE HCG < 4.0 MIU/ML
[2017-12-28] MEDS ORDERED: CLOPIDOGREL75 MG PO (12:07)
[2017-12-28] MEDS ORDERED: ATORVASTATIN CA40 MG PO (12:08)
[2017-12-28 12:56] LABS: COLOR LT. YELLOW ((YELLOW))
[2017-12-28 12:57] LABS: APPEARANCE CLOUDY ((CLEAR)); BILIRUBIN NEGATIVE; GLUCOSE (STRIP) NEGATIVE; KETONES NEGATIVE
[2017-12-28 12:58] LABS: BLOOD LARGE; PROTEIN (STRIP) 30; UROBILINOGEN 0.2 MG/DL (0.2-1.0)
[2017-12-28 12:59] LABS: LEUKOCYTES MODERATE; NITRITE NEGATIVE
[2017-12-28 13:15] LABS: BACTERIA 3+ /HPF; EPITHELIAL CELLS 3+ /HPF; MUCUS NONE SEEN /LPF; RED BLOOD CELLS 15-20 /HPF (0-5); UCUL ADDED? YES; WHITE BLOOD CELLS 0-5 /HPF (0-5)
[2017-12-28 14:13] LABS: ALBUMIN 3.9 g/dL (3.2-4.8)
[2017-12-28 14:14] LABS: CHLORIDE 93 mEq/L (99-109); POTASSIUM 3.5 mEq/L (3.7-5.4); SODIUM 144 mEq/L (136-147)
[2017-12-28 14:16] LABS: GLUCOSE 98 mg/dL (70-99); TOTAL PROTEIN 7.2 g/dL (6.4-8.3)
[2017-12-28 14:18] LABS: TOTAL BILIRUBIN 0.5 mg/dL (0.0-1.0)
[2017-12-28 14:19] LABS: ALKALINE PHOSPHATASE 81 IU/L (3-129)
[2017-12-28 14:20] LABS: CREATININE 17.7 mg/dL (0.6-1.3); GFR ESTIMATE (CALCULATED) 2 mL/min/
[2017-12-28 14:21] LABS: AST (GOT) 27 IU/L (2-34); UREA NITROGEN (BUN) 73 mg/dL (9-23)
[2017-12-28 14:22] LABS: ALT (GPT) 3 IU/L (3-49)
[2017-12-28] MEDS ORDERED: TRAZODONE HCL50 MG PO (14:35)
[2017-12-28] MEDS ORDERED: CALCITRIOL0.25 MCG PO (14:38)
[2017-12-28] MEDS ORDERED: LORAZEPAM0.5 MG PO (14:38)
[2017-12-28] MEDS ORDERED: VITAMIN D2000 UNIT PO (14:39)
[2017-12-28 15:14] LABS: HDL CHOLESTEROL 55 MG/DL (Desirable>=50); LDL CHOLESTEROL 64 mg/dL (Desirable<100); NON-HDL CHOLESTEROL 88 mg/dL (Desirable<160); TOTAL CHOLESTEROL 143 mg/dL (Desirable<200); TRIGLYCERIDES 118 MG/DL (Normal: <150)
[2017-12-28 18:59] LABS: TROP-I INTERPRETATION POSITIVE; TROPONIN-I 0.65 ng/mL (0.0-0.30)
[2017-12-28 19:32] VITALS: BP 111/68
[2017-12-29] VITALS: BP 129/75
[2017-12-29 01:13] LABS: TROP-I INTERPRETATION INDETERMINATE; TROPONIN-I 0.59 ng/mL (0.0-0.30)
[2017-12-29 03:10] LABS: AMPHETAMINE NEGATIVE (500 ng/mL); BARBITURATES NEGATIVE (200 ng/mL); BENZODIAZEPINES NEGATIVE (150 ng/mL); BUPRENORPHINE NEGATIVE (10 ng/mL); COCAINE NEGATIVE (150 ng/mL); METHADONE NEGATIVE (200 ng/mL); METHAMPHETAMINE NEGATIVE (500 ng/mL); OPIATES (MORPHINE) NEGATIVE (100 ng/mL); OXYCODONE NEGATIVE (100 ng/mL); PHENCYCLIDINE NEGATIVE (25 ng/mL); PROPOXYPHENE NEGATIVE (300 ng/mL); THC CANNABINOIDS NEGATIVE (50 ng/mL); TRICYCLIC ANTIDEPRESSANTS NEGATIVE (300 ng/mL)
[2017-12-29 04:15] VITALS: BP 124/85
[2017-12-29 05:01] LABS: HEMATOCRIT 36.7 % (36.0-46.0); HEMOGLOBIN 11.8 G/DL (11.9-15.5); MCH 31.4 PG (29.0-34.0); MCHC 32.2 G/DL (30.0-36.0); MCV 97.6 FL (83-99); PLATELET COUNT 167 K/uL (156-360); RBC DIS.WIDTH-CV 14.6 % (11.8-14.6); RBC DIS.WIDTH-SD 52.6 % (39-53); RED BLOOD COUNT 3.76 M/uL (3.80-5.20); WHITE BLOOD COUNT 8.7 K/uL (4.1-10.2)
[2017-12-29 05:19] LABS: CHLORIDE 94 mEq/L (99-109); POTASSIUM 3.8 mEq/L (3.7-5.4); SODIUM 138 mEq/L (136-147)
[2017-12-29 05:20] LABS: GLUCOSE 105 mg/dL (70-99)
[2017-12-29 05:24] LABS: CREATININE 17.2 mg/dL (0.6-1.3); GFR ESTIMATE (CALCULATED) 2 mL/min/
[2017-12-29 05:25] LABS: UREA NITROGEN (BUN) 71 mg/dL (9-23)
[2017-12-29 09:00] VITALS: BP 124/85
[2017-12-29 10:50] LABS: HEMOGLOBIN A1c (GLYCOHEMOGLOB) 4.6 % (Below 5.7)
[2017-12-29 12:30] VITALS: BP 113/76
[2017-12-29 18:51] LABS: TROP-I INTERPRETATION POSITIVE; TROPONIN-I 0.67 ng/mL (0.0-0.30)
[2017-12-29 20:03] VITALS: BP 140/91
[2017-12-30 00:25] VITALS: BP 128/85
[2017-12-30 01:00] LABS: TROP-I INTERPRETATION INDETERMINATE; TROPONIN-I 0.54 ng/mL (0.0-0.30)
[2017-12-30 04:03] VITALS: BP 134/90
[2017-12-30 05:48] LABS: HEMATOCRIT 39.1 % (36.0-46.0); HEMOGLOBIN 12.4 G/DL (11.9-15.5); MCH 30.8 PG (29.0-34.0); MCHC 31.7 G/DL (30.0-36.0); MCV 97.3 FL (83-99); PLATELET COUNT 185 K/uL (156-360); RBC DIS.WIDTH-CV 14.4 % (11.8-14.6); RBC DIS.WIDTH-SD 51.9 % (39-53); RED BLOOD COUNT 4.02 M/uL (3.80-5.20); WHITE BLOOD COUNT 9.6 K/uL (4.1-10.2)
[2017-12-30 06:21] LABS: TROP-I INTERPRETATION POSITIVE; TROPONIN-I 0.66 ng/mL (0.0-0.30)
[2017-12-30 06:26] LABS: ALBUMIN 3.6 G/DL (3.2-4.8); ALKALINE PHOSPHATASE 68 IU/L (3-129); ALT (GPT) 4 IU/L (3-49); AST (GOT) 21 IU/L (2-34); CHLORIDE 95 MEQ/L (99-109); CREATININE 15.7 MG/DL (0.6-1.3); GFR ESTIMATE (CALCULATED) 3 mL/min/; GLUCOSE 87 mg/dL (70-99); LIPASE 66 U/L (1.0-51.0); POTASSIUM 3.6 MEQ/L (3.7-5.4); SODIUM 140 MEQ/L (136-147); TOTAL BILIRUBIN 0.2 MG/DL (0.0-1.0); TOTAL PROTEIN 5.9 G/DL (6.4-8.3); UREA NITROGEN (BUN) 59 mg/dL (9-23)
[2017-12-30 06:34] LABS: CHLORIDE 95 MEQ/L (99-109); GFR ESTIMATE (CALCULATED) 3 mL/min/; GLUCOSE 85 mg/dL (70-99); POTASSIUM 3.4 MEQ/L (3.7-5.4); SODIUM 137 MEQ/L (136-147); UREA NITROGEN (BUN) 58 mg/dL (9-23)
[2017-12-30 07:39] VITALS: BP 113/74
[2017-12-30 10:15] VITALS: BP 125/85
[2017-12-30 13:44] VITALS: BP 135/89
[2017-12-31 00:10] VITALS: BP 121/76
[2017-12-31 04:18] VITALS: BP 133/73
[2017-12-31 05:29] LABS: INTER. NORMALIZED RATIO 1.1
[2017-12-31 08:48] VITALS: BP 134/89
[2017-12-31 11:15] VITALS: BP 133/81
[2017-12-31 15:26] VITALS: BP 133/82
[2017-12-31 21:00] VITALS: BP 125/74
[2018-01-01] VITALS (8 sets, daily range): BP systolic 114–148; BP diastolic 65–97
[2018-01-01 06:30] LABS: INTER. NORMALIZED RATIO 1.2
[2018-01-01 18:03] LABS: TYPE OF FLUID PERITONEAL
[2018-01-01 18:37] LABS: BODY FLUID RBC'S 8 /MM^3 (0-100)
[2018-01-01 18:38] LABS: BODY FLUID WBC'S 4 /MM^3 (0-500)
[2018-01-01 19:03] LABS: BODY FLUID EOSINOPHILS 0 % (0-25); MONONUCLEAR WBC'S 80 %; POLYNUCLEAR WBC'S 20 % (0-25)
[2018-01-02 04:07] VITALS: BP 136/89
[2018-01-02 05:54] LABS: BASOPHIL (%) 0.7 % (0-1); BASOPHIL COUNT 0.1 K/uL (0-0.1); EOSINOPHIL (%) 6.9 % (0-5); EOSINOPHIL COUNT 0.6 K/uL (0-0.3); HEMATOCRIT 38.3 % (36.0-46.0); HEMOGLOBIN 12.2 G/DL (11.9-15.5); IMMATURE GRANULOCYTE (%) 1.2 % (0.0-0.7); INTER. NORMALIZED RATIO 1.2; LYMPHOCYTE (%) 18.8 % (15-42); LYMPHOCYTE COUNT 1.7 K/uL (1.0-2.8); MCH 31.7 PG (29.0-34.0); MCHC 31.9 G/DL (30.0-36.0); MCV 99.5 FL (83-99); MONOCYTE (%) 7.9 % (3-12); MONOCYTE COUNT 0.7 K/uL (0-0.8); NEUTROPHIL (%) 64.5 % (45-76); PLATELET COUNT 182 K/uL (156-360); RBC DIS.WIDTH-CV 14.6 % (11.8-14.6); RBC DIS.WIDTH-SD 51.8 % (39-53); RED BLOOD COUNT 3.85 M/uL (3.80-5.20); WHITE BLOOD COUNT 9.2 K/uL (4.1-10.2)
[2018-01-02 05:57] LABS: PTT 73.1 SEC (25-37)
[2018-01-02 06:33] LABS: ALBUMIN 3.7 G/DL (3.2-4.8); CHLORIDE 95 MEQ/L (99-109); GFR ESTIMATE (CALCULATED) 3 mL/min/; GLUCOSE 100 mg/dL (70-99); MAGNESIUM 1.9 mg/dl (1.3-2.7); PHOSPHORUS 3.8 mg/dL (2.5-4.9); POTASSIUM 3.7 MEQ/L (3.7-5.4); SODIUM 136 MEQ/L (136-147); UREA NITROGEN (BUN) 41 mg/dL (9-23)
[2018-01-02 08:45] VITALS: BP 128/90
[2018-01-02 11:25] VITALS: BP 137/85
[2018-01-02 16:30] VITALS: BP 119/81
[2018-01-02 20:00] VITALS: BP 122/80
[2018-01-03] VITALS (8 sets, daily range): BP systolic 108–138; BP diastolic 59–85
[2018-01-03 06:05] LABS: BASOPHIL (%) 0.6 % (0-1); BASOPHIL COUNT 0.1 K/uL (0-0.1); EOSINOPHIL (%) 7.6 % (0-5); EOSINOPHIL COUNT 0.6 K/uL (0-0.3); HEMATOCRIT 36.4 % (36.0-46.0); HEMOGLOBIN 11.4 G/DL (11.9-15.5); IMMATURE GRANULOCYTE (%) 0.8 % (0.0-0.7); LYMPHOCYTE (%) 26.2 % (15-42); LYMPHOCYTE COUNT 2.2 K/uL (1.0-2.8); MCH 31.5 PG (29.0-34.0); MCHC 31.3 G/DL (30.0-36.0); MCV 100.6 FL (83-99); MONOCYTE (%) 8.1 % (3-12); MONOCYTE COUNT 0.7 K/uL (0-0.8); NEUTROPHIL (%) 56.7 % (45-76); NEUTROPHIL COUNT 4.7 K/uL (1.8-6.4); PLATELET COUNT 177 K/uL (156-360); RBC DIS.WIDTH-CV 14.6 % (11.8-14.6); RBC DIS.WIDTH-SD 53.6 % (39-53); RED BLOOD COUNT 3.62 M/uL (3.80-5.20); WHITE BLOOD COUNT 8.3 K/uL (4.1-10.2)
[2018-01-03 06:09] LABS: INTER. NORMALIZED RATIO 1.3
[2018-01-03 06:12] LABS: PTT 101.8 SEC (25-37)
[2018-01-03 06:34] LABS: ALBUMIN 3.3 G/DL (3.2-4.8); CHLORIDE 94 MEQ/L (99-109); CREATININE 14.3 MG/DL (0.6-1.3); GFR ESTIMATE (CALCULATED) 3 mL/min/; GLUCOSE 81 mg/dL (70-99); PHOSPHORUS 4.4 mg/dL (2.5-4.9); POTASSIUM 3.8 MEQ/L (3.7-5.4); SODIUM 136 MEQ/L (136-147); UREA NITROGEN (BUN) 37 mg/dL (9-23)
[2018-01-03 22:13] LABS: LUPA PHOSPHOLIPID NEUTRALIZ Negative (Negative)
[2018-01-04 04:19] VITALS: BP 121/73
[2018-01-04 05:40] LABS: BASOPHIL (%) 0.5 % (0-1); EOSINOPHIL (%) 8.1 % (0-5); EOSINOPHIL COUNT 0.6 K/uL (0-0.3); HEMATOCRIT 35.3 % (36.0-46.0); HEMOGLOBIN 10.9 G/DL (11.9-15.5); LYMPHOCYTE (%) 26.7 % (15-42); LYMPHOCYTE COUNT 2.1 K/uL (1.0-2.8); MCH 30.9 PG (29.0-34.0); MCHC 30.9 G/DL (30.0-36.0); MONOCYTE (%) 9.5 % (3-12); MONOCYTE COUNT 0.8 K/uL (0-0.8); NEUTROPHIL (%) 54.2 % (45-76); NEUTROPHIL COUNT 4.3 K/uL (1.8-6.4); PLATELET COUNT 184 K/uL (156-360); RBC DIS.WIDTH-SD 53.8 % (39-53); RED BLOOD COUNT 3.53 M/uL (3.80-5.20); WHITE BLOOD COUNT 7.9 K/uL (4.1-10.2)
[2018-01-04 05:51] LABS: INTER. NORMALIZED RATIO 2.2
[2018-01-04 05:54] LABS: PTT 77.2 SEC (25-37)
[2018-01-04 06:01] LABS: CHLORIDE 95 MEQ/L (99-109); CREATININE 14.6 MG/DL (0.6-1.3); GFR ESTIMATE (CALCULATED) 3 mL/min/; GLUCOSE 78 mg/dL (70-99); PHOSPHORUS 4.2 mg/dL (2.5-4.9); SODIUM 136 MEQ/L (136-147); UREA NITROGEN (BUN) 38 mg/dL (9-23)
[2018-01-04 07:21] VITALS: BP 110/70
[2018-01-04 10:28] LABS: QUANTITATIVE HCG < 4.0 MIU/ML
[2018-01-04 13:41] VITALS: BP 116/82
[2018-01-04 16:14] VITALS: BP 136/67
[2018-01-04 20:20] VITALS: BP 120/77
[2018-01-04 23:29] VITALS: BP 116/71
[2018-01-05 03:35] VITALS: BP 112/74
[2018-01-05 06:13] LABS: INTER. NORMALIZED RATIO 3.3
[2018-01-05 06:18] LABS: ALBUMIN 3.2 G/DL (3.2-4.8); CHLORIDE 98 MEQ/L (99-109); CREATININE 14.8 MG/DL (0.6-1.3); GFR ESTIMATE (CALCULATED) 3 mL/min/; GLUCOSE 75 mg/dL (70-99); PHOSPHORUS 4.2 mg/dL (2.5-4.9); POTASSIUM 4.4 MEQ/L (3.7-5.4); SODIUM 142 MEQ/L (136-147); UREA NITROGEN (BUN) 39 mg/dL (9-23)
[2018-01-05 07:39] VITALS: BP 120/71
[2018-01-05] MEDS ORDERED: URSODIOL300 MG PO (07:40)
[2018-01-05] MEDS ORDERED: COMPAZINE5 MG PO (07:40)
[2018-01-05] MEDS ORDERED: DOMP10T PO (07:40)
[2018-01-05] MEDS ORDERED: ROPINIROLE HCL0.5 MG PO (07:40)
[2018-01-06 12:05] LABS: DRVVT Mixing Study Interp Not Indicated (()); FACTOR VIII ACTIVITY+ 394 % (50-180); PROTEIN C FUNCTIONAL ACTIVITY+ 178 % (70-180); PTT-LA 56 sec (<=40); Protein S, Free 107 % normal (50-147); Thrombosis Consult Level Limited (()); dRVVT Screen 52 sec (<=45)
[2018-01-08 13:34] LABS: ANTITHROMBIN III ACTIVITY+ 123 % activi (80-120)
== END 2018-01-05 11:22 | disposition home health service (06) | DRG 64 ==
LOC: EME 11:12 → 4EAST 12:45 → EDOF 12:45 → ENRESERV 12:46 → CANRESERV 16:17 → ENRESERV 16:17 → 4EAST 17:32
PROVIDERS: Emergency Medicine; Hospitalist; Internal Medicine; Internal Medicine Nephrology; Specialist
PROC: 3E1M39Z Irrigation of Peritoneal Cavity using Dialysate, Percutaneous Approach (ICD-10-PCS; principal; 2017-12-28)
PROC: B246ZZ4 Ultrasonography of Right and Left Heart, Transesophageal (ICD-10-PCS; principal; 2017-12-28)
DX: I63.8 Other cerebral infarction (principal); R20.2 Paresthesia of skin; I69.320 Aphasia following cerebral infarction; I12.0 Hypertensive chronic kidney disease with stage 5 chronic kidney disease or end stage renal disease; N18.6 End stage renal disease; Z99.2 Dependence on renal dialysis; Q22.5 Ebstein's anomaly; Q61.3 Polycystic kidney, unspecified; D68.59 Other primary thrombophilia; E87.6 Hypokalemia; R74.8 Abnormal levels of other serum enzymes; R11.2 Nausea with vomiting, unspecified; R63.0 Anorexia; E03.9 Hypothyroidism, unspecified; K21.0 Gastro-esophageal reflux disease with esophagitis; I45.6 Pre-excitation syndrome; E78.5 Hyperlipidemia, unspecified; E66.9 Obesity, unspecified; Z68.39 Body mass index [BMI] 39.0-39.9, adult; D64.9 Anemia, unspecified; K59.00 Constipation, unspecified; I25.2 Old myocardial infarction; Z87.74 Personal history of (corrected) congenital malformations of heart and circulatory system; Z79.82 Long term (current) use of aspirin; Z79.02 Long term (current) use of antithrombotics/antiplatelets
CPT/HCPCS: 70450; 70496; 70498; 70551; 74018; 74176; 78227; 80048; 80048 91; 80053; 80061; 80069; 81003; 81240 90; 82150; 82948; 83036; 83090 90; 83690; 83735; 84484; 84702; 85025; 85027; 85240 90; 85300 90; 85303 90; 85305 90; 85306 90; 85307 90; 85610; 85613 90; 85730; 85730 90; 86146 90; 86147 90; 86850; 86900; 86901; 87086; 89051; 92507 GN; 92523 GN; 93005; 93325; 99281; 99285; A9537; C8925; C9113; G0480; J0696; J0780; J1644; J2270; J2405; J2805

== ENCOUNTER 2018-01-23 18:26 | Emergency (ER) | payer OTHER ==
[~2018-01-23] VITALS: Ht 162.6 cm; Wt 104.1 kg
[~2018-01-23 18:26] MED LIST changes: +CALCITRIOL0.25 MCG PO; +CLOPIDOGREL75 MG PO; +COMPAZINE5 MG PO; +DOMP10T PO; +ROPINIROLE HCL0.5 MG PO; +VITAMIN D2000 UNIT PO
[2018-01-23 19:34] VITALS: BP 129/92
== END 2018-01-23 19:35 | disposition home or self-care (01) ==
LOC: EME 18:26
DX: I73.00 Raynaud's syndrome without gangrene (principal); K21.9 Gastro-esophageal reflux disease without esophagitis; I10 Essential (primary) hypertension; I45.6 Pre-excitation syndrome; Z87.442 Personal history of urinary calculi; Z86.73 Personal history of transient ischemic attack (TIA), and cerebral infarction without residual deficits; Z79.01 Long term (current) use of anticoagulants; Z88.1 Allergy status to other antibiotic agents
CPT/HCPCS: 99281; 99284

== ENCOUNTER 2018-01-31 16:15 | Observation (INO) | payer OTHER ==
[~2018-01-31] VITALS: Ht 162.6 cm; Wt 103.0 kg
[2018-01-31 17:48] LABS: HEMATOCRIT 39.3 % (36.0-46.0); HEMOGLOBIN 12.7 G/DL (11.9-15.5); MCH 31.1 PG (29.0-34.0); MCHC 32.3 G/DL (30.0-36.0); MCV 96.3 FL (83-99); PLATELET COUNT 220 K/uL (156-360); RBC DIS.WIDTH-CV 14.1 % (11.8-14.6); RBC DIS.WIDTH-SD 49.8 % (39-53); RED BLOOD COUNT 4.08 M/uL (3.80-5.20); WHITE BLOOD COUNT 7.6 K/uL (4.1-10.2)
[2018-01-31 18:02] LABS: CHLORIDE 96 mEq/L (99-109); POTASSIUM 3.4 mEq/L (3.7-5.4); SODIUM 139 mEq/L (136-147)
[2018-01-31 18:03] LABS: GLUCOSE 83 mg/dL (70-99)
[2018-01-31 18:06] LABS: INTER. NORMALIZED RATIO 2.8; PTT 39.5 SEC (25-37)
[2018-01-31 18:07] LABS: CREATININE 15.6 mg/dL (0.6-1.3); GFR ESTIMATE (CALCULATED) 3 mL/min/
[2018-01-31 18:08] LABS: UREA NITROGEN (BUN) 55 mg/dL (9-23)
[2018-01-31 18:13] LABS: TROP-I INTERPRETATION NEGATIVE; TROPONIN-I 0.07 ng/mL (0.0-0.30)
[2018-01-31] MEDS ORDERED: FUROSEMIDE80 MG PO (18:35)
[2018-01-31] MEDS ORDERED: COMPAZINE10 MG PO (18:37)
[2018-01-31] MEDS ORDERED: WARFARIN SODIUM5 MG PO (18:38)
[2018-01-31] MEDS ORDERED: ONDANSETRON HCL4 MG PO (18:41)
[2018-01-31] MEDS ORDERED: DESVENLAFAXINE50 M3 PO (18:42)
[2018-01-31] MEDS ORDERED: ZOLOFT50 MG PO (18:50)
[2018-01-31 21:06] LABS: HDL CHOLESTEROL 46 MG/DL (Desirable>=50); LDL CHOLESTEROL 72 mg/dL (Desirable<100); NON-HDL CHOLESTEROL 96 mg/dL (Desirable<160); TOTAL CHOLESTEROL 142 mg/dL (Desirable<200); TRIGLYCERIDES 122 MG/DL (Normal: <150)
[2018-01-31 23:35] LABS: TROP-I INTERPRETATION NEGATIVE; TROPONIN-I 0.08 ng/mL (0.0-0.30)
[2018-02-01 01:29] VITALS: BP 100/61
[2018-02-01 05:34] VITALS: BP 120/70
[2018-02-01 05:52] LABS: HEMATOCRIT 35.1 % (36.0-46.0); HEMOGLOBIN 11.2 G/DL (11.9-15.5); MCHC 31.9 G/DL (30.0-36.0); MCV 97.2 FL (83-99); PLATELET COUNT 211 K/uL (156-360); RBC DIS.WIDTH-CV 14.1 % (11.8-14.6); RBC DIS.WIDTH-SD 50.4 % (39-53); RED BLOOD COUNT 3.61 M/uL (3.80-5.20); WHITE BLOOD COUNT 8.6 K/uL (4.1-10.2)
[2018-02-01 06:08] LABS: TROP-I INTERPRETATION NEGATIVE; TROPONIN-I 0.08 ng/mL (0.0-0.30)
[2018-02-01 06:12] VITALS: BP 119/78
[2018-02-01 06:34] LABS: ALBUMIN 3.2 G/DL (3.2-4.8); ALKALINE PHOSPHATASE 62 IU/L (3-129); ALT (GPT) 11 IU/L (3-49); AST (GOT) 15 IU/L (2-34); CHLORIDE 100 MEQ/L (99-109); CREATININE 16.1 MG/DL (0.6-1.3); GFR ESTIMATE (CALCULATED) 3 mL/min/; GLUCOSE 79 mg/dL (70-99); POTASSIUM 3.2 MEQ/L (3.7-5.4); SODIUM 140 MEQ/L (136-147); TOTAL BILIRUBIN 0.2 MG/DL (0.0-1.0); TOTAL PROTEIN 4.8 G/DL (6.4-8.3); UREA NITROGEN (BUN) 56 mg/dL (9-23)
[2018-02-01 07:17] VITALS: BP 116/57
[2018-02-01 12:00] VITALS: BP 118/65
== END 2018-02-01 14:42 | disposition home or self-care (01) ==
LOC: EME 16:15 → 4EAST 19:13 → EDOF 19:13 → 4EAST 19:13 → ENRESERV 19:15 → 4EAST 02-01 01:40
PROVIDERS: Emergency Medicine Emergency Medical Services; Internal Medicine
DX: I63.8 Other cerebral infarction (principal); R47.01 Aphasia; I69.322 Dysarthria following cerebral infarction; Q21.1 Atrial septal defect; Q22.5 Ebstein's anomaly; I45.6 Pre-excitation syndrome; Z98.890 Other specified postprocedural states; I12.0 Hypertensive chronic kidney disease with stage 5 chronic kidney disease or end stage renal disease; N18.6 End stage renal disease; Z99.2 Dependence on renal dialysis; D68.59 Other primary thrombophilia; D63.1 Anemia in chronic kidney disease; Q61.3 Polycystic kidney, unspecified; E87.6 Hypokalemia; E03.9 Hypothyroidism, unspecified; E78.5 Hyperlipidemia, unspecified; Z79.01 Long term (current) use of anticoagulants; Z79.82 Long term (current) use of aspirin; Z88.1 Allergy status to other antibiotic agents
CPT/HCPCS: 70450; 70551; 71046; 80048; 80053; 80061; 81003; 84484; 85027; 85610; 85730; 92523 GN; 93005; 99281; 99285; G0378; J7040

== ENCOUNTER 2018-03-02 13:17 | Observation (INO) | payer OTHER ==
[~2018-03-02] VITALS: Ht 162.6 cm; Wt 89.0 kg
[~2018-03-02 13:17] MED LIST changes: +COMPAZINE10 MG PO; +DESVENLAFAXINE50 M3 PO; +ONDANSETRON HCL4 MG PO; +WARFARIN SODIUM5 MG PO; +ZOLOFT50 MG PO
[2018-03-02 13:44] LABS: BASOPHIL (%) 0.8 % (0-1); BASOPHIL COUNT 0.1 K/uL (0-0.1); EOSINOPHIL (%) 5.5 % (0-5); EOSINOPHIL COUNT 0.5 K/uL (0-0.3); HEMATOCRIT 45.9 % (36.0-46.0); HEMOGLOBIN 15.2 G/DL (11.9-15.5); IMMATURE GRANULOCYTE (%) 0.4 % (0.0-0.7); LYMPHOCYTE (%) 23.1 % (15-42); LYMPHOCYTE COUNT 2.1 K/uL (1.0-2.8); MCH 31.6 PG (29.0-34.0); MCHC 33.1 G/DL (30.0-36.0); MCV 95.4 FL (83-99); MONOCYTE (%) 8.3 % (3-12); MONOCYTE COUNT 0.8 K/uL (0-0.8); NEUTROPHIL (%) 61.9 % (45-76); NEUTROPHIL COUNT 5.7 K/uL (1.8-6.4); PLATELET COUNT 243 K/uL (156-360); RED BLOOD COUNT 4.81 M/uL (3.80-5.20); WHITE BLOOD COUNT 9.3 K/uL (4.1-10.2)
[2018-03-02 13:50] LABS: PTT 32.9 SEC (25-37)
[2018-03-02 13:52] LABS: AMYLASE 132 IU/L (1-118); CHLORIDE 96 mEq/L (99-109); POTASSIUM 3.4 mEq/L (3.7-5.4); SODIUM 138 mEq/L (136-147)
[2018-03-02 13:53] LABS: GLUCOSE 108 mg/dL (70-99)
[2018-03-02 13:57] LABS: CREATININE 14.6 mg/dL (0.6-1.3); GFR ESTIMATE (CALCULATED) 3 mL/min/; SERUM ETHYL ALCOHOL < 10 mg/dL
[2018-03-02 13:58] LABS: UREA NITROGEN (BUN) 57 mg/dL (9-23)
[2018-03-02 14:00] LABS: INTER. NORMALIZED RATIO 1.2; LIPASE 82 U/L (1.0-51.0)
[2018-03-02 14:01] LABS: TROP-I INTERPRETATION NEGATIVE; TROPONIN-I 0.23 ng/mL (0.0-0.30)
[2018-03-02 14:06] LABS: QUANTITATIVE HCG < 4.0 MIU/ML
[2018-03-02] MEDS ORDERED: REQUIP0.5 MG PO (15:50)
[2018-03-02] MEDS ORDERED: GENTAMICIN SULF30 GM TP (15:53)
[2018-03-02] MEDS ORDERED: ELIQUIS5 MG PO (15:54)
[2018-03-02] MEDS ORDERED: ENULOSE10 GM/15 M PO (15:54)
[2018-03-02 18:14] VITALS: BP 102/61
[2018-03-02 18:24] LABS: HEMATOCRIT 43.2 % (36.0-46.0); HEMOGLOBIN 13.9 G/DL (11.9-15.5); MCHC 32.2 G/DL (30.0-36.0); MCV 96.2 FL (83-99); PLATELET COUNT 233 K/uL (156-360); RBC DIS.WIDTH-CV 15.1 % (11.8-14.6); RBC DIS.WIDTH-SD 51.9 % (39-53); RED BLOOD COUNT 4.49 M/uL (3.80-5.20); WHITE BLOOD COUNT 8.3 K/uL (4.1-10.2)
[2018-03-02 18:50] LABS: ALBUMIN 3.6 G/DL (3.2-4.8); ALKALINE PHOSPHATASE 73 IU/L (3-129); ALT (GPT) 10 IU/L (3-49); AST (GOT) 11 IU/L (2-34); CHLORIDE 94 MEQ/L (99-109); CREATININE 14.6 MG/DL (0.6-1.3); GFR ESTIMATE (CALCULATED) 3 mL/min/; GLUCOSE 100 mg/dL (70-99); HDL CHOLESTEROL 51 MG/DL (Desirable>=50); LDL CHOLESTEROL 90 mg/dL (Desirable<100); NON-HDL CHOLESTEROL 114 mg/dL (Desirable<160); SODIUM 134 MEQ/L (136-147); TOTAL BILIRUBIN 0.4 MG/DL (0.0-1.0); TOTAL CHOLESTEROL 165 mg/dL (Desirable<200); TOTAL PROTEIN 6.5 G/DL (6.4-8.3); TRIGLYCERIDES 119 MG/DL (Normal: <150); UREA NITROGEN (BUN) 52 mg/dL (9-23)
[2018-03-02 22:00] VITALS: BP 107/64
[2018-03-02 22:35] VITALS: BP 107/64
[2018-03-03 04:00] VITALS: BP 118/65
[2018-03-03 05:30] LABS: ALBUMIN 3.3 G/DL (3.2-4.8); CHLORIDE 96 MEQ/L (99-109); CREATININE 14.8 MG/DL (0.6-1.3); GFR ESTIMATE (CALCULATED) 3 mL/min/; GLUCOSE 89 mg/dL (70-99); PHOSPHORUS 5.1 mg/dL (2.5-4.9); POTASSIUM 3.2 MEQ/L (3.7-5.4); SODIUM 135 MEQ/L (136-147); UREA NITROGEN (BUN) 55 mg/dL (9-23)
[2018-03-03 06:00] VITALS: BP 109/73
[2018-03-03 07:25] VITALS: BP 92/57
[2018-03-03 10:22] LABS: HEMOGLOBIN A1c (GLYCOHEMOGLOB) 4.8 % (Below 5.7)
[2018-03-03 12:54] VITALS: BP 112/71
[2018-03-03] MEDS ORDERED: PRAVACHOL40 MG PO (16:34)
== END 2018-03-03 15:56 | disposition home health service (06) ==
LOC: EME → EDBD 13:17 → 4EAST 15:37 → 5SOUTH 15:37 → EDOF 15:37 → 4EAST 15:37 → ENRESERV 15:40 → 5SOUTH 17:08 → ENRESERV 21:30 → 4EAST 22:12
PROVIDERS: Emergency Medicine; Internal Medicine; Internal Medicine Nephrology
PROC: 3E1M39Z Irrigation of Peritoneal Cavity using Dialysate, Percutaneous Approach (ICD-10-PCS; principal; 2018-03-03)
DX: I63.9 Cerebral infarction, unspecified (principal); Z79.01 Long term (current) use of anticoagulants; K21.9 Gastro-esophageal reflux disease without esophagitis; E03.9 Hypothyroidism, unspecified; I12.0 Hypertensive chronic kidney disease with stage 5 chronic kidney disease or end stage renal disease; N18.6 End stage renal disease; I69.322 Dysarthria following cerebral infarction; I69.398 Other sequelae of cerebral infarction; R20.2 Paresthesia of skin; Z99.2 Dependence on renal dialysis; E87.6 Hypokalemia
CPT/HCPCS: 70450; 70496; 70498; 70551; 80048; 80053; 80061; 80069; 81003; 82150; 83036; 83690; 84484; 84702; 85025; 85027; 85610; 85730; 86850; 86900; 86901; 93306; 99281; 99285; G0378; G0480

== ENCOUNTER 2018-05-22 09:54 | Emergency (ER) | payer OTHER ==
[~2018-05-22] VITALS: Ht 162.6 cm; Wt 97.1 kg
[2018-05-22] VITALS (9 sets, daily range): BP systolic 100–121; BP diastolic 59–79
[~2018-05-22 09:54] MED LIST changes: +ELIQUIS5 MG PO; +ENULOSE10 GM/15 M PO; +PRAVACHOL40 MG PO; +REQUIP0.5 MG PO
[2018-05-22 11:17] LABS: CHLORIDE 92 mEq/L (99-109); POTASSIUM 3.2 mEq/L (3.7-5.4); SODIUM 139 mEq/L (136-147)
[2018-05-22 11:19] LABS: GLUCOSE 107 mg/dL (70-99)
[2018-05-22 11:22] LABS: CREATININE 13.5 mg/dL (0.6-1.3); GFR ESTIMATE (CALCULATED) 3 mL/min/
[2018-05-22 11:23] LABS: UREA NITROGEN (BUN) 60 mg/dL (9-23)
[2018-05-22 11:25] LABS: HEMATOCRIT 19.6 % (36.0-46.0); HEMOGLOBIN 6.2 G/DL (11.9-15.5); MCH 31.5 PG (29.0-34.0); MCHC 31.6 G/DL (30.0-36.0); MCV 99.5 FL (83-99); PLATELET COUNT 409 K/uL (156-360); RBC DIS.WIDTH-CV 16.2 % (11.8-14.6); RBC DIS.WIDTH-SD 56.7 % (39-53); RED BLOOD COUNT 1.97 M/uL (3.80-5.20); WHITE BLOOD COUNT 7.2 K/uL (4.1-10.2)
[2018-05-22 12:08] LABS: ALBUMIN 3.5 g/dL (3.2-4.8)
[2018-05-22 12:10] LABS: TOTAL PROTEIN 6.3 g/dL (6.4-8.3)
[2018-05-22 12:12] LABS: TOTAL BILIRUBIN 0.5 mg/dL (0.0-1.0)
[2018-05-22 12:13] LABS: ALKALINE PHOSPHATASE 54 IU/L (3-129)
[2018-05-22 12:16] LABS: ALT (GPT) 14 IU/L (3-49); AST (GOT) 12 IU/L (2-34); DIRECT BILIRUBIN 0.1 mg/dL (0.0-0.3)
[2018-05-22] MEDS ORDERED: MEGACE40 MG PO (15:58)
== END 2018-05-22 18:27 | disposition home or self-care (01) ==
LOC: EME 09:54
PROVIDERS: Nurse Practitioner Family
PROC: 30233N1 Transfusion of Nonautologous Red Blood Cells into Peripheral Vein, Percutaneous Approach (ICD-10-PCS; principal; 2018-05-22)
DX: D64.9 Anemia, unspecified (principal); N93.9 Abnormal uterine and vaginal bleeding, unspecified; Z99.2 Dependence on renal dialysis; R53.1 Weakness; R94.31 Abnormal electrocardiogram [ECG] [EKG]; I10 Essential (primary) hypertension; K21.9 Gastro-esophageal reflux disease without esophagitis; Q61.3 Polycystic kidney, unspecified; Z79.01 Long term (current) use of anticoagulants; Z86.79 Personal history of other diseases of the circulatory system; Z87.442 Personal history of urinary calculi; Z98.890 Other specified postprocedural states; Z86.73 Personal history of transient ischemic attack (TIA), and cerebral infarction without residual deficits; Z88.1 Allergy status to other antibiotic agents
CPT/HCPCS: 71046; 80048; 80076; 82140; 85027; 86850; 86900; 86901; 86920; 93005; 99281; 99285; P9016